=== PATIENT | female | born 1960 | race Hispanic/Latino ===

== ENCOUNTER 2019-07-10 14:37 | Outpatient (CLI) | payer OTHER ==
--- NOTE | 2019-07-10 15:38 | XRay Report ---
CHEST 2 VIEWS INDICATION: J20.8) Acute bronchitis due to other specified organisms.. COMPARISON: None FINDINGS: Support devices: None. Heart: Within normal limits. Lungs/pleura: No acute air space or interstitial disease. No pneumothorax. Additional findings: None. IMPRESSION: No acute findings. Signer Name: Sae Jefferson Jr, MD Signed: 07/10/2019 3:34 PM Workstation Name: [id number]
== END 2019-07-10 14:38 | disposition home or self-care (01) ==
LOC: XRAY 14:37
PROVIDERS: ATTEND Internal Medicine
DX: J20.8 Acute bronchitis due to other specified organisms (principal)
CPT/HCPCS: 71046